=== PATIENT | female | born 1985 | race Caucasian/White ===

== ENCOUNTER 2020-10-01 10:27 | Emergency (ER) | payer BC, SELFPAY ==
[2020-10-01 11:06] VITALS: BP 96/55; PULSE 69; RESP 18; TEMP 37.1; O2SAT 100
--- NOTE | 2020-10-01 11:44 | ED.URI ---
HPI - URI/Sore Throat General Chief Complaint: Upper Respiratory Infection Stated Complaint: sore throat Source: patient and RN notes reviewed Mode of arrival: ambulatory Limitations: no limitations History of Present Illness HPI Narrative: This is a 34-year-old female who presented to urgent care today with complaints of sore throat and a fever of 102.0. She also complains of chest discomfort that she attributes to anxiety. Patient question whether she could have an STD orally which is causing her sore throat. She did have a telehealth visit with her primary care physician yesterday who prescribed her Z-Abdias. Patient noted that she did take 1 dose yesterday which resulted in nausea and vomiting afterwards. Patient did test positive for strep today. I did give her an additional dose of azithromycin due to her nausea and vomiting instructed her to take Compazine for nausea and vomiting and eat before taking antibiotics. She was also instructed to take Tylenol and ibuprofen alternating for a fever. Patient is not a concern from her chest discomfort she relates it is anxiety. I did instruct her if she experienced any chest pain she is to proceed to the emergency room or call EMS immediately. Patient is a healthy adult does not believe her chest discomfort is related to a OH. The patient denies SOB, CP, palpitation, extremity numbness, lightheadedness, dizziness, constipation, diarrhea, chills, or fever. MD elicited complaint: fever Related Data Allergies Allergy/AdvReac Type Severity Reaction Status Date / Time Penicillins Allergy Mild RASH Verified 10/01/20 11:23 Review of Systems Review of Systems: Narrative: A 14 organ system Review of Systems was performed and pertinent positives included in the HPI, otherwise remaining ROS is negative. [facility] Family History Family History Other Family history non-contributory Exam Narrative: Exam Narrative: GENERAL: This is a well-nourished, well-developed patient, in no apparent distress. HEAD: normocephalic, atraumatic. EYES: PERRL. Sclera clear/white. Vision is grossly intact. EARS: External ears normal, auditory canals clear and without drainage, TMs normal without perforation. Hearing grossly intact. NOSE: External nose normal with no obvious nasal discharge, nares without redness, no rhinorrhea. THROAT: Mucous membranes moist, posterior pharynx edematous with erythema NECK: Neck supple, non-tender without lymphadenopathy, masses or thyromegaly. CARDIOVASCULAR: Regular rate and rhythm without murmurs, gallops, or rubs. RESPIRATORY: Clear to auscultation. Breath sounds equal bilaterally. No wheezes, rales, or rhonchi. GASTROINTESTINAL: Abdomen soft, non-tender, nondistended. Bowel sounds are active. No hepato-splenomegaly, or palpable masses. No guarding. SKIN: warm, intact with no suspicious lesions or rash, good texture and turgor. NEURO: awake, alert, and oriented to person, place and time. There were no obvious focal neurologic abnormalities. Steady gait EXTREMITIES: Normal range of motion. No edema. No calf tenderness. Negative Homans sign bilaterally. BACK: Nontender without deformity or crepitance. No flank tenderness. Course Vital Signs Vital signs: Vital Signs Temperature 98.7 F 10/01/20 11:06 Pulse Rate 69 10/01/20 11:06 Respiratory Rate 18 10/01/20 11:06 Blood Pressure 96/55 L 10/01/20 11:06 Pulse Oximetry 100 10/01/20 11:06 Temperature 98.7 F 10/01/20 11:06 Pulse Rate 69 10/01/20 11:06 Respiratory Rate 18 10/01/20 11:06 Blood Pressure 96/55 L 10/01/20 11:06 Pulse Oximetry 100 10/01/20 11:06 MDM - URI/Sore Throat Differential Diagnosis Differential diagnosis: Likely upper respiratory infection, sinusitis, pharyngitis and other (strep) Lab Data Attestation: I reviewed the patient's lab results. Labs: Strep Screen Positive Group A Strep
== END 2020-10-01 11:47 | disposition home or self-care (01) ==
PROVIDERS: Emergency Provider Nurse Practitioner
DX: J02.0 Streptococcal pharyngitis (principal)
CPT/HCPCS: 87880; 99213; G0463

== ENCOUNTER 2023-12-19 08:25 | Emergency (ER) | payer BC, SELFPAY ==
--- NOTE | ~2023-12-19 | XR_ITS ---
EXAMINATION: XR chest 1V portable DATE: 12/19/2023 09:01 INDICATION: Cough TECHNIQUE: frontal view of the chest was obtained. COMPARISON: None FINDINGS: The lungs are clear with no focal airspace opacities, pulmonary edema, pleural effusion or pneumothor ax. The cardiomediastinal silhouette is normal. Visualized bones and soft tissues are unremarkable. IMPRESSION: 1. Normal chest radiograph. Reviewed, dictated and finalized at location A. IMPRESSION: 1. Normal chest radiograph.
--- NOTE | ~2023-12-19 | CT_ITS ---
EXAMINATION: CT abdomen pelvis wo con DATE: 12/19/2023 09:32 INDICATION: Low back pain. Recent urinary tract infection. TECHNIQUE: Computed tomography (CT) of the abdomen and pelvis was performed without intravenous contr ast. Automated exposure control and iterative reconstruction technique were employed. The dose-length product was 207.19 mGy-cm. COMPARISON: Chest single view 12/19/2023 FINDINGS: The visualized portions of the lung bases demonstrate airspace opacities in the right lower lobe and right middle lobe, consistent with pneumonia. No pleural effusion. The heart size is normal . No pericardial effusion. There are bilateral breast implants. The liver, gallbladder, spleen, pancr eas, adrenal glands, and kidneys are normal. There is no urolithiasis. There are no dilated loops of bowel. The appendix is not visualized. There are no pathologically enlarged lymph nodes. There is no free intraperitoneal fluid. There is mild lumbar spondylosis. IMPRESSION: 1. Pneumonia involving right lower lobe and right middle lobe. 2. No urolithiasis. Reviewed, dictated and finalized at location A.
[2023-12-19 08:31] VITALS: BP 125/86; PULSE 62; RESP 16; TEMP 37.1; O2SAT 100
[2023-12-19 08:54] LABS: Basophils Percent Auto 0.4 % (0.2-1.2); Eosinophils Absolute Auto 0.4 K/mm3 (0-0.3); Eosinophils Percent Auto 5.2 % (0-4.4); Hematocrit 34.9 % (37.0-47.0); Hemoglobin 10.9 g/dL (12.0-15.0); Immature Granulocyte Absolute 0.01 K/mm3 (0.00-0.031); Immature Granulocyte Percent A 0.1 % (0-0.5); Lymphocytes Absolute Auto 1.12 K/mm3 (0.9-3.2); Lymphocytes Percent Auto 16.6 % (18.3-44.2); Mean Corpuscular HGB Conc 31.2 g/dl (32-36); Mean Corpuscular Hemoglobin 26.1 pg (26-34); Mean Corpuscular Volume 83.7 fl (80-100); Mean Platelet Volume 10.9 fl (7.4-10.4); Monocytes Absolute Auto 0.8 K/mm3 (0.1-0.6); Monocytes Percent Auto 11.9 % (2.6-8.5); Neutrophils Absolute Auto 4.4 K/mm3 (1.3-6.7); Neutrophils Percent Auto 65.8 % (45.5-73.1); Platelet Count Result 265 k/mm3 (150-375); Red Blood Count 4.17 M/mm3 (4.2-5.4); Red Cell Distribution Width 14.5 % (11.5-14.5); White Blood Count 6.8 K/mm3 (4.5-10.0)
[2023-12-19 08:56] LABS: Add Urine Microscopic? NO; Appearance Urine Clear (Clear); Bilirubin Urine Negative (Negative); Blood Urine Negative (Negative); Color Urine Yellow (Yellow); Glucose Urine UA Negative (Negative); Ketones Urine Negative (Negative); Leukocyte Esterase Ur Negative LEU/UL (Negative); Nitrate Urine Negative (Negative); Protein Urine Negative (Negative); Specific Grav Ur 1.012 (1.001-1.035); Urobilinogen Urine 0.2 mg/dL (<2.0); pH Urine 6.5 (5.0-9.0)
[2023-12-19 09:05] LABS: Alanine Aminotransferase 19 U/L (6-35); Albumin Level 4.4 g/dL (3.5-5.1); Alkaline Phosphatase 68 U/L (38-126); Anion Gap 9 mmol/L (4-12); Aspartate Amino Transferase 29 U/L (14-36); Bilirubin,Total 0.3 mg/dL (0.2-1.3); Blood Urea Nitrogen 12 mg/dL (7-17); Calcium 8.7 mg/dL (8.4-10.2); Carbon Dioxide 26 mmol/L (22-30); Chloride 103 mmol/L (98-107); Estimated CRCL calculation 78 ml/min; Estimated Glomerular Filt Rate > 60; Glucose 91 mg/dL (65-110); Potassium 3.9 mmol/L (3.4-5.0); Sodium 138 mmol/L (137-145)
[2023-12-19] MEDS: SODIUM CHLORIDE 0.9% IV 1,000 ML 999 ML IV CONT (09:10)
[2023-12-19 09:13] LABS: BEDSIDEPREGUCG Negative
--- NOTE | 2023-12-19 09:13 | ED.FEMALEGU ---
HPI - Female Genitourinary General Chief complaint: Urogenital-Female Stated complaint: UTI Time Seen by Provider: 12/19/23 08:54 Source: patient Mode of arrival: ambulatory Limitations: no limitations History of Present Illness HPI Narrative: Patient is a 38-year-old female who presents the ED with report of lower back discomfort. Patient reports she was recently diagnosed with a UTI around 1.5 weeks ago. Was prescribed Macrobid X5d and completed this. Reports history of frequent UTIs, history of kidney function, history of 1 previous kidney stone. Reports over the last few days, she has had worsening of lower back discomfort, which she typically has with UTIs. Also reports intermittent fevers over the last few days, T-max 101.1? F last night. She is concerned she has a recurrent kidney infection. She does also report having cough and congestion over the last few days. Denies shortness breath, known sick contacts. Denies abdominal pain, dysuria, hematuria, nausea, vomiting, SOB. Related Data Allergies Allergy/AdvReac Type Severity Reaction Status Date / Time Penicillins Allergy Mild RASH Verified 12/19/23 08:32 Review of Systems Review of Systems: CONSTITUTIONAL: Denies fever, chills, or sweats. ENT: See HPI. CARDIOVASCULAR: Denies chest pain. RESPIRATORY: See HPI. GASTROINTESTINAL: Denies abdominal pain, nausea, vomiting. GENITOURINARY: Denies dysuria or hematuria. MUSCULOSKELETAL: See HPI. All systems reviewed & are unremarkable except as noted in HPI and below PMFSH Family History Family History Other Family history non-contributory Social History Social History Gender identity (if verbalized by the patient): Female Exam Narrative: GENERAL: Well appearing, well-nourished, non-toxic, in no acute distress. HEAD: Normocephalic, atraumatic. RESPIRATORY: Airway patent, respirations nonlabored. Clear to auscultation bilaterally, no rales, rhonchi, wheezing. CARDIOVASCULAR: Regular rate and rhythm without murmurs, rubs, or gallops. ABDOMINAL: Soft, minimal tenderness over suprapubic region, nondistended. Normoactive BS. MUSCULOSKELETAL: Moves all extremities. No gross deformities. Mild diffuse tenderness throughout the lumbosacral region. No midline spinal tenderness. SKIN: Warm, dry, normal color. NEURO: A&O X3. Speech clear. PSYCHIATRIC: Appropriate mood and affect. Normal interaction. Course Vital Signs Vital signs: Vital Signs Temperature 98.8 F 12/19/23 08:31 Pulse Rate 62 12/19/23 08:31 Respiratory Rate 16 12/19/23 08:31 Blood Pressure 125/86 12/19/23 08:31 Pulse Oximetry 100 12/19/23 08:31 Temperature 98.8 F 12/19/23 08:31 Pulse Rate 62 12/19/23 08:31 Respiratory Rate 16 12/19/23 08:31 Blood Pressure 125/86 12/19/23 08:31 Pulse Oximetry 100 12/19/23 08:31 MDM - Female Genitourinary MDM Narrative Medical decision making narrative: patient presented to ED with lower back discomfort, recent UTI, concerned for kidney infection. Also reports URI symptoms over the last few days. VSS upon arrival. Basic laboratory studies are unremarkable. No leukocytosis. Very mild anemia noted with hemoglobin 10.9. Normocytic. Patient does report she recently had her normal menstrual cycle. Denies any other recent bleeding. CMP is unremarkable. Stable electrolytes, stable kidney function. Urinalysis is completely unremarkable. No signs of infection. Urine negative. Chest x-ray is clear. COVID negative. CT scan of abd/pelvis obtained and without evidence of ureterolithiasis or pyelonephritis. Does show evidence of pneumonia in right middle and lower lobe. will treat for PNA with abx given patient's recent cough, fevers. Discussed lab and imaging findings with patient. Discussed possibility of viral syndrome, myalgias
[2023-12-19 09:32] LABS: SARS-CoV-2 RNA PCR Negative (Negative)
[2023-12-19 10:27] VITALS: BP 130/84; PULSE 70; RESP 14; O2SAT 97
== END 2023-12-19 10:28 | disposition home or self-care (01) ==
PROVIDERS: Emergency Medicine; Emergency Provider Physician Assistant
DX: J18.9 Pneumonia, unspecified organism (principal); J06.9 Acute upper respiratory infection, unspecified; M54.50 Low back pain, unspecified; Z20.822 Contact with and (suspected) exposure to COVID-19
CPT/HCPCS: 36415; 71045; 74176; 80053; 81003; 81025; 85025; 87635; 96360; 99284; J7030